=== PATIENT | male | born 1985 ===

== ENCOUNTER 2021-07-08 08:39 | Emergency (ER) | payer OTHER ==
[~2021-07-08] VITALS: Ht 172.7 cm; Wt 71.1 kg
[2021-07-08 09:14] VITALS: BP 125/85
== END 2021-07-08 19:55 | disposition left against medical advice (07) ==
LOC: ER 08:40
DX: R19.7 Diarrhea, unspecified (principal); Z53.21 Procedure and treatment not carried out due to patient leaving prior to being seen by health care provider